=== PATIENT | male | born 1930 | race Caucasian/White ===

== ENCOUNTER 2017-10-08 18:31 | Inpatient (IN) | payer MEDICAID ==
--- NOTE | 2017-10-08 19:21 | ED Physician Chart ---
ED Chief Complaint/HPI - Patient Information Date Seen:: 10/08/17 Time Seen:: 19:00 Chief Complaint:: redness of his toes History of Present Illness:: Patient is a resident of a snf facility. He has had redness of his toes for an unspecified length of time. Patient is nonverbal secondary to dementia. Allergies:: Allergies Allergy/AdvReac Type Severity Reaction Status Date / Time No Known Drug Allergies Allergy Verified 03/22/16 21:00 Vitals:: Vital Signs - 8 hr 10/08/17 19:03 Temp 98.4 F HR 68 RR 18 BP 111/64 O2 Sat % 96 Review:: Transfer documents Reviewed ED Review of Systems - Review of Systems General/Constitutional: No fever, No chills, No weight loss, No weakness, No diaphoresis, No edema, No loss of appetite Skin: No skin lesions, No rash, No bruising, Other (redness of his toes) Head: No headache, No light-headedness Eyes: No loss of vision, No pain, No diplopia ENT: No earache, No nasal drainage, No sore throat, No tinnitus Neck: No neck pain, No swelling, No thyromegaly, No stiffness, No mass noted Cardio Vascular: No chest pain, No palpitations, No PND, No orthopnea, No edema Pulmonary: No SOB, No cough, No sputum, No wheezing GI: No nausea, No vomiting, No diarrhea, No pain, No melena, No hematochezia, No constipation, No hematemesis G/U: No dysuria, No frequency, No hematuria Musculoskeletal: No bone or joint pain, No back pain, No muscle pain Endocrine: No polyuria, No polydipsia Psychiatric: No prior psych history, No depression, No anxiety, No suicidal ideation Hematopoietic: No bruising, No lymphadenopathy Allergic/Immuno: No urticaria, No angioedema Neurological: No syncope, No focal symptoms, No weakness, No paresthesia, No headache, No seizure, No dizziness, No confusion, No vertigo ED Past Medical History - Past Medical History Past Medical History: HTN, DM, Asthma/COPD, Dementia, Other (Alzheimer's disease ; encephalopathy; Parkinson's disease; bipolar) Family History: Other (unavailable) Social History: Care Facility Surgical History: other (unavailable) Psychiatricy History: Bipolar, Dementia Medication: Reviewed Family Medical History - Family Member Mother History Unknown: Yes Ethnicity: Hx Family Hypertension: Yes Hx Family Dementia: Yes ED Physical Exam - Physical Examination General/Constitutional: Alert Other Gen/Cons comments:: Chronically ill-appearing; nonverbal Head: Atraumatic Eyes: Lids, conjuctiva normal Other Skin comments:: Mild erythema of toes both feet Other ENMT comments:: Appears to be edentulous but does not open his mouth Neck: No bruit Respiratory: Nl effort/Exclusion, Clear to Auscultation Cardio Vascular: RRR GI: No tenderness/rebounding/guarding, No organomegaly : No CVA tenderness Other Extremities comments:: See under skin Neuro/Psych: No focal deficits Misc: Normal back ED Labs/Radiology/EKG Results - Lab Results Results: Laboratory Results - last 24 hr 10/08/17 10/08/17 19:25 19:25 WBC 6.4 RBC 4.57 Hgb 14.7 Hct 44.5 MCV 97.3 MCH 32.2 H MCHC Differential 33.1 RDW 13.2 Plt Count 273 MPV 7.2 Neutrophils % 50.8 Lymphocytes % 37.0 Monocytes % 8.4 Eosinophils % 3.0 Basophils % 0.8 Sodium 137 Potassium 3.9 Chloride 108 H Carbon Dioxide 22.6 Anion Gap 10.3 BUN 18 Creatinine 0.7 Est GFR ( Amer) TNP Est GFR (Non-Af Amer) TNP BUN/Creatinine Ratio 25.7 Glucose 116 H Calcium 8.9 ED Septic Shock - . Is Septic Shock (SBP<90, OR Lactate>4 mmol\L) present?: No - <6hrs of presentation: Vital Signs: Vital Signs - 8 hr 10/08/17 19:03 Temp 98.4 F HR 68 RR 18 BP 111/64 O2 Sat % 96 ED Reassessment (Disposition) - Reassessment Reassessment Condition:: Unchanged - Diagnosis Diagnosis:: Cellulitis toes both feet; dementia; Parkinson's disease - Patient Disposition Admitted to:: Med/Surg Spoke to:: Zafar Lowery Admitting Medical Physician:: Zafar Lowery Condition at Disposition:: Stable, Unchanged
[2017-10-08 19:36] LABS: % BASOPHILS 0.8 % (0.0-2.0); % MONOCYTES 8.4 % (2.0-10.0); % NEUTROPHILS 50.8 % (40.0-80.0); BASOPHILE ABSOLUTE 0.1 Th/cumm (0-0.2); EOSINOPHILE ABSOLUTE 0.2 Th/cmm (0.1-0.4); HEMATOCRIT 44.5 % (41.0-60); HEMOGLOBIN 14.7 gm/dL (12-16); LYMPHOCYTE ABSOLUTE 2.4 Th/cmm (1.5-3.0); MEAN CELL VOLUME 97.3 fl (80-99); MEAN CORPUSCULAR HEMOGLOBIN 32.2 pg (27.0-31.0); MEAN CORPUSCULAR HGB CONC 33.1 pg (28.0-36.0); MEAN PLATELET VOLUME 7.2 fl; MONOCYTE ABSOLUTE 0.5 Th/cmm (0.3-1.0); NEUTROPHILE ABSOLUTE 3.2 Th/cmm (1.8-8.0); PLATELET COUNT 273 Th/cmm (150-400); RED BLOOD COUNT 4.57 Mil/cmm (3.80-5.80); RED CELL DISTRIBUTION WIDTH 13.2 % (11.5-20.0); WHITE BLOOD COUNT 6.4 Th/cmm (4.8-10.8)
[2017-10-08 19:49] LABS: ANION GAP 10.3 (7.0-16.0); BUN - UREA NITROGEN 18 mg/dL (7-25); CALCIUM SERUM 8.9 mg/dL (8.6-10.3); CARBON DIOXIDE 22.6 mEq/L (21.0-31.0); CHLORIDE 108 mEq/L (98-107); CREATININE - SERUM 0.7 mg/dL (0.7-1.3); GLUCOSE 116 mg/dL (70-105); POTASSIUM SERUM 3.9 mEq/L (3.5-5.1); SODIUM SERUM 137 mEq/L (136-145)
[2017-10-09] MEDS: cefTRIAXone 1 GM in Sodium Chloride 0.9% 50 ML IV SCH (01:00)
[2017-10-09] MEDS: INSULIN ASPART, RECOMBINANT 100 UNITS/ML SUBQ SCH (06:29)
[2017-10-09 06:38] LABS: % BASOPHILS 0.6 % (0.0-2.0); % EOSINOPHILS 2.8 % (0.0-5.0); % LYMPHOCYTES 34.9 % (20.0-50.0); % MONOCYTES 7.9 % (2.0-10.0); % NEUTROPHILS 53.8 % (40.0-80.0); EOSINOPHILE ABSOLUTE 0.2 Th/cmm (0.1-0.4); HEMATOCRIT 43.2 % (41.0-60); HEMOGLOBIN 14.6 gm/dL (12-16); LYMPHOCYTE ABSOLUTE 2.2 Th/cmm (1.5-3.0); MEAN CELL VOLUME 96.5 fl (80-99); MEAN CORPUSCULAR HEMOGLOBIN 32.7 pg (27.0-31.0); MEAN CORPUSCULAR HGB CONC 33.9 pg (28.0-36.0); MEAN PLATELET VOLUME 7.6 fl; MONOCYTE ABSOLUTE 0.5 Th/cmm (0.3-1.0); NEUTROPHILE ABSOLUTE 3.4 Th/cmm (1.8-8.0); PLATELET COUNT 278 Th/cmm (150-400); RED BLOOD COUNT 4.48 Mil/cmm (3.80-5.80); RED CELL DISTRIBUTION WIDTH 13.1 % (11.5-20.0); WHITE BLOOD COUNT 6.3 Th/cmm (4.8-10.8)
[2017-10-09 06:59] LABS: ALBUMIN 3.6 gm/dL (4.2-5.5); ALKALINE PHOSPHATASE 80 U/L (34-104); ANION GAP 8.2 (7.0-16.0); BILIRUBIN,TOTAL 0.6 mg/dL (0.3-1.0); BUN - UREA NITROGEN 15 mg/dL (7-25); CALCIUM SERUM 8.6 mg/dL (8.6-10.3); CARBON DIOXIDE 26.6 mEq/L (21.0-31.0); CHLORIDE 108 mEq/L (98-107); CREATININE - SERUM 0.7 mg/dL (0.7-1.3); GLUCOSE 87 mg/dL (70-105); POTASSIUM SERUM 3.8 mEq/L (3.5-5.1); SGOT 11 U/L (13-39); SGPT/ALT 9 U/L (7-52); SODIUM SERUM 139 mEq/L (136-145); TOTAL PROTEIN,SERUM 5.4 gm/dL (6.0-8.3)
[2017-10-09 07:28] LABS: CHOLESTEROL 183 mg/dL (<200); HDL -HIGH DENSITY LIPOPROTEIN 43 mg/dL (23-92); TRIGLYCERIDES 107 mg/dL (<150)
[2017-10-09 07:34] VITALS: BP 138/68
[2017-10-09] MEDS ORDERED: VTE Chemical Prophylaxis Screen/Admission MC PRN (07:45)
[2017-10-09] MEDS: Multivitamin w/ Minerals Tab PO SCH (08:41)
[2017-10-09] MEDS: Calcium Carb/Vit D 500 mg/200 U Tab PO SCH (08:41)
[2017-10-09] MEDS ORDERED: DOCUSATE SODIUM PO SCH (09:00)
[2017-10-09] MEDS ORDERED: INSULIN HUMAN REGULAR 100 UNITS/ML UNIT SUBQ SCH (09:00)
[2017-10-10] MEDS: cefTRIAXone 1 GM in Sodium Chloride 0.9% 50 ML IV SCH (01:58)
--- NOTE | 2017-10-10 02:49 | Consultation ---
DATE OF CONSULTATION: 10/09/2017 INFECTIOUS DISEASE CONSULTATION REFERRING PHYSICIAN: Gabby Lowery MD REASON FOR CONSULTATION: Cellulitis. HISTORY OF PRESENT ILLNESS: The patient is an 87-year-old male with a past medical history of hypertension, diabetes mellitus type 2, asthma, COPD, dementia, brought in from nursing facility for the redness of his stools for unknown period. On initial evaluation, the patient's temperature was 98.4 degrees Fahrenheit and WBC count was 6400. ALLERGIES: NKDA. MEDICATIONS: See medication reconciliation sheet. Antibiotic kulkarni, the patient is receiving Rocephin. REVIEW OF SYSTEMS: The patient is unable to give any history. The patient is demented. Otherwise, the patient has no fever, no chills. The patient has discoloration of some of the toes on both feet. It is associated with discoloration of the nails. SOCIAL HISTORY: The patient lives at nursing facility. No history of smoking, alcohol or drug use. FAMILY HISTORY: Not available. PHYSICAL EXAMINATION: VITAL SIGNS: Shows temperature 98.4, pulse 73, respirations 18, blood pressure 111/57. GENERAL: The patient is comfortable. HEENT: Head is normocephalic, atraumatic. Oral cavity moist, pink tongue. Eyes: Pallor is present, no icterus. PERRLA, EOMI. NECK: Supple. No JVD. No carotid bruit. Trachea midline. CHEST: Bilateral breath sounds. No crackles or wheezing. HEART: S1, S2 within normal limits. Regular rhythm. No murmur, no gallop. ABDOMEN: Soft, nontender, nondistended. Bowel sounds present. EXTREMITIES: No cyanosis, no clubbing, no edema. The patient has discoloration of the toes. The patient also has old ____. CENTRAL NERVOUS SYSTEM: Alert and awake. Unable to communicate. LABORATORY DATA: Current lab shows WBC count 6300, hemoglobin 14.6, hematocrit 43.2, platelets are 278,000, neutrophils 54%. Sodium 139, potassium 3.8, chloride 108, bicarbonate is 26.6, BUN is 15, creatinine 0.7, glucose is 87. IMPRESSION: Cellulitis of the toes of both feet with right elbow wound. There is discoloration of both lower extremities. LABORATORY DATA: Current lab shows WBC count is 6300, hemoglobin 14.6, hematocrit 43.2, platelets are 278,000, neutrophil is 0.7. IMPRESSION: 1. Cellulitis of the toes of both feet. May have fungal infection, onychomycosis. 2. Left elbow wound. 3. Diabetes mellitus type 2. 4. Dementia. RECOMMENDATIONS: Continue vancomycin, wound care. JOB# [id number]
[2017-10-10] MEDS: INSULIN ASPART, RECOMBINANT 100 UNITS/ML SUBQ SCH (06:33)
[2017-10-10] MEDS: Calcium Carb/Vit D 500 mg/200 U Tab PO SCH (10:05)
[2017-10-10] MEDS: Multivitamin w/ Minerals Tab PO SCH (10:05)
--- NOTE | 2017-10-27 15:21 | History & Physical ---
ADMIT DATE: 10/09/2017 HISTORY OF PRESENT ILLNESS: The patient is well known to me from and patient was admitted to [facility] on 10/08/2017 and the patient came in because of redness and swelling of his toes and difficult to obtain a history from him. REVIEW OF SYSTEMS: Briefly, the patient is confused and unable to give any history and he has cellulitis of his foot. The patient is known to have history of hypertension, diabetes, history of dementia. PHYSICAL EXAMINATION: GENERAL: The patient is alert, oriented x 1, to his name. HEAD: Normal. ENT: Normal. NECK: Supple, nontender. LUNGS: Clear. CARDIOVASCULAR SYSTEM: S1, S2 heard. ABDOMEN: Soft. Bowel sounds are heard EXTREMITIES: Cellulitis of both feet. DIAGNOSIS: Cellulitis of both feet, history of dementia, history of Parkinson disease, history of CVA in the past. PLAN: The patient is being admitted and I will follow the patient. I will have ID doctor see the patient. I will follow the patient. JOB# [id number]
--- NOTE | 2017-10-27 20:52 | History & Physical ---
ADMIT DATE: 10/10/2017 The patient is well known to me. The patient came from [facility], apparently had bilateral toe cellulitis and left elbow wound, history of diabetes, and dementia. The patient was treated, ID doctor saw the patient. The patient was put on antibiotic. The patient improved. The patient was in stable condition on 10/10/2017, was sent home was in stable condition. MEDICATIONS: See the reconciliation sheet. I will follow the patient. JOB# [id number]
== END 2017-10-10 14:22 | DRG 383 ==
LOC: ER 18:31 → MSI 21:05
PROVIDERS: ADMIT Internal Medicine; ATTEND Internal Medicine
DX: L03.031 Cellulitis of right toe (principal); G20 Parkinson's disease; E11.9 Type 2 diabetes mellitus without complications; G30.9 Alzheimer's disease, unspecified; B35.1 Tinea unguium; F02.80 Dementia in other diseases classified elsewhere, unspecified severity, without behavioral disturbance, psychotic disturbance, mood disturbance, and anxiety; F31.9 Bipolar disorder, unspecified; L03.032 Cellulitis of left toe; J44.9 Chronic obstructive pulmonary disease, unspecified; S50.902A Unspecified superficial injury of left elbow, initial encounter; X58.XXXA Exposure to other specified factors, initial encounter; I10 Essential (primary) hypertension; Z82.49 Family history of ischemic heart disease and other diseases of the circulatory system; Z81.8 Family history of other mental and behavioral disorders; Y93.89 Activity, other specified; Y92.89 Other specified places as the place of occurrence of the external cause; Y99.8 Other external cause status; Z86.73 Personal history of transient ischemic attack (TIA), and cerebral infarction without residual deficits
CPT/HCPCS: 36415-UA; 80048-TC; 80053-TC; 80061-TC; 82948-90; 84443-TC; 85025-TC; J0696; J1644; J1815; Z7610

== ENCOUNTER 2018-03-02 10:46 | Emergency (ER) | payer MEDICAID ==
[2018-03-02 11:30] LABS: % EOSINOPHILS 0.7 % (0.0-5.0); % LYMPHOCYTES 18.8 % (20.0-50.0); % NEUTROPHILS 71.5 % (40.0-80.0); BASOPHILE ABSOLUTE 0.4 Th/cumm (0-0.2); EOSINOPHILE ABSOLUTE 0.1 Th/cmm (0.1-0.4); HEMATOCRIT 46.9 % (41.0-60); HEMOGLOBIN 15.5 gm/dL (12-16); LYMPHOCYTE ABSOLUTE 1.9 Th/cmm (1.5-3.0); MEAN CORPUSCULAR HEMOGLOBIN 31.8 pg (27.0-31.0); MEAN CORPUSCULAR HGB CONC 33.1 pg (28.0-36.0); MEAN PLATELET VOLUME 7.3 fl; MONOCYTE ABSOLUTE 0.5 Th/cmm (0.3-1.0); NEUTROPHILE ABSOLUTE 7.1 Th/cmm (1.8-8.0); PLATELET COUNT 284 Th/cmm (150-400); RED BLOOD COUNT 4.89 Mil/cmm (3.80-5.80); RED CELL DISTRIBUTION WIDTH 13.1 % (11.5-20.0)
[2018-03-02 11:47] LABS: ALB/GLOB RATIO 1.7 (1.0-1.8); ALKALINE PHOSPHATASE 74 U/L (34-104); ANION GAP 12.7 (7.0-16.0); BILIRUBIN,TOTAL 0.5 mg/dL (0.3-1.0); BUN - UREA NITROGEN 23 mg/dL (7-25); CALCIUM SERUM 9.3 mg/dL (8.6-10.3); CARBON DIOXIDE 21.8 mEq/L (21.0-31.0); CHLORIDE 106 mEq/L (98-107); CREATININE - SERUM 0.8 mg/dL (0.7-1.3); GLUCOSE 103 mg/dL (70-105); MAGNESIUM 2.2 mg/dL (1.9-2.7); PHOSPHOROUS 2.4 mg/dL (2.5-5.0); POTASSIUM SERUM 3.5 mEq/L (3.5-5.1); SGOT 14 U/L (13-39); SGPT/ALT 8 U/L (7-52); SODIUM SERUM 137 mEq/L (136-145); TOTAL PROTEIN,SERUM 6.3 gm/dL (6.0-8.3)
[2018-03-02 12:35] LABS: URINE BILIRUBIN NEGATIVE (NEGATIVE); URINE BLOOD LARGE (NEGATIVE); URINE GLUCOSE (UA) NEGATIVE (NEGATIVE); URINE KETONE NEGATIVE (NEGATIVE); URINE LEUKOCYTE ESTERASE NEGATIVE (NEGATIVE); URINE MICROSCOPIC INDICATED? YES; URINE NITRATE NEGATIVE (NEGATIVE); URINE PROTEIN TRACE mg/dL (NEGATIVE); URINE SOURCE CATH
[2018-03-02] MEDS ORDERED: Piperacillin Sodium/Tazobact 3.375 gm Vial IV ONE (12:45)
[2018-03-02 12:46] LABS: URINE COLOR YELLOW
[2018-03-02 12:47] LABS: URINE CLARITY HAZY (CLEAR); URINE RBC 0-2 /hpf (0-5)
[2018-03-02 12:48] LABS: URINE EPITHELIAL CELLS OCCASIONAL /lpf (FEW)
[2018-03-02 12:49] LABS: URINE BACTERIA MODERATE /hpf (NONE SEEN)
--- NOTE | 2018-03-02 12:57 | ED Physician Chart ---
ED Chief Complaint/HPI - Patient Information Date Seen:: 03/02/18 Time Seen:: 11:20 Chief Complaint:: congestion History of Present Illness:: congestion Allergies:: Allergies Allergy/AdvReac Type Severity Reaction Status Date / Time No Known Drug Allergies Allergy Verified 03/02/18 11:20 Vitals:: Vital Signs - 8 hr 03/02/18 11:20 Temp 97.5 F HR 87 RR 18 BP 119/68 O2 Sat % 98 Historian:: Medical Records Review:: Nurse's Note Reviewed, Transfer documents Reviewed ED Review of Systems - Review of Systems General/Constitutional: No fever, No chills, No weight loss, No weakness, No diaphoresis, No edema, No loss of appetite Skin: No skin lesions, No rash, No bruising Head: No headache, No light-headedness Eyes: No loss of vision, No pain, No diplopia ENT: No earache, No nasal drainage, No sore throat, No tinnitus Neck: No neck pain, No swelling, No thyromegaly, No stiffness, No mass noted Cardio Vascular: No chest pain, No palpitations, No PND, No orthopnea, No edema Pulmonary: Other GI: No nausea, No vomiting, No diarrhea, No pain, No melena, No hematochezia, No constipation, No hematemesis G/U: No dysuria, No frequency, No hematuria Musculoskeletal: No bone or joint pain, No back pain, No muscle pain Endocrine: No polyuria, No polydipsia Psychiatric: No prior psych history, No depression, No anxiety, No suicidal ideation Hematopoietic: No bruising, No lymphadenopathy Allergic/Immuno: No urticaria, No angioedema Neurological: No syncope, No focal symptoms, No weakness, No paresthesia, No headache, No seizure, No dizziness, No confusion, No vertigo ED Past Medical History - Past Medical History Obtainable: No Past Medical History: HTN, DM, Asthma/COPD, Dementia, Other (Parkinson's) Psychiatricy History: Bipolar, Dementia Family Medical History - Family Member Mother History Unknown: Yes Ethnicity: Hx Family Hypertension: Yes Hx Family Dementia: Yes ED Physical Exam - Physical Examination General/Constitutional: Awake, Well-developed, well-nourished, Alert, No distress, Ambulatory Other Gen/Cons comments:: chronically ill appearing Head: Atraumatic Eyes: PERRL Skin: No rash ENMT: External ears, nose nl Neck: Nontender, No nuchal rigidity, No stridor Other Respiratory comments:: dry crackles at bases. Cardio Vascular: RRR, No murmur, gallop, rubs, NL S1 S2 GI: No tenderness/rebounding/guarding, No organomegaly, No hernia, Normal BS's, Nondistended, No mass/bruits, No McBurney tenderness Other Extremities comments:: RUE with wrist flexed. ED Labs/Radiology/EKG Results - Lab Results Results: Laboratory Tests 03/02/18 03/02/18 03/02/18 11:25 11:25 12:28 WBC 10.0 RBC 4.89 Hgb 15.5 Hct 46.9 MCV 96.0 MCH 31.8 H MCHC Differential 33.1 RDW 13.1 Plt Count 284 MPV 7.3 Neutrophils % 71.5 Lymphocytes % 18.8 L Monocytes % 5.0 Eosinophils % 0.7 Basophils % 4.0 H Sodium 137 Potassium 3.5 Chloride 106 Carbon Dioxide 21.8 Anion Gap 12.7 BUN 23 Creatinine 0.8 Est GFR ( Amer) TNP Est GFR (Non-Af Amer) TNP BUN/Creatinine Ratio 28.8 Glucose 103 Calcium 9.3 Phosphorus 2.4 L Magnesium 2.2 Total Bilirubin 0.5 AST 14 ALT 8 Alkaline Phosphatase 74 Total Protein 6.3 Albumin 4.0 L Globulin 2.3 Albumin/Globulin Ratio 1.7 Urine Source CATH Urine Color YELLOW Urine Clarity HAZY Urine pH 7.0 Ur Specific [place] 1.020 Urine Protein TRACE Urine Glucose (UA) NEGATIVE Urine Ketones NEGATIVE Urine Blood LARGE H Urine Nitrate NEGATIVE Urine Bilirubin NEGATIVE Urine Urobilinogen 1.0 Ur Leukocyte Esterase NEGATIVE Urine RBC 0-2 H Urine WBC 10-25 H Ur Epithelial Cells OCCASIONAL Urine Bacteria MODERATE H ED Assessment - Assessment General Assessment: CXR per my reading: enlarged heart with increased lung markings. patient refuses to eat. Dr. Zavala from [employer] called us after we received admitting orders from Dr. Lowery to admit here. Since the patient is clinically stable, Dr. Zavala asked for us to transfer the patient to [facility]. Dr. Lucretia Zavala is the accepting doctor for a direct admit per insurance request. ED Septic Shock - . Is Septic Shock (SBP<90, OR Lactate>4 mmol\L) present?: No - <6hrs of presentation: Vital Signs: Vital Signs - 8 hr 03/02/ 11:20 Temp 97.5 F HR 87 RR 18 BP 119/68 O2 Sat % 98 ED Reassessment (Disposition) - Reassessment Reassessment Condition:: Unchanged - Diagnosis Diagnosis:: Dehydration Weakness Failure to Thrive (refuses to eat) Suspected respiratory infection Urinary tract infection Diabetes mellitus COPD Parkinson's Alzheimer's Dementia Bipolar - Patient Disposition Discharge/Transfer:: Acute Care (other hosp) Transport Method:: ACLS Condition at Disposition:: Stable, Unchanged
[2018-03-02] MEDS ORDERED: Lactated Ringer 1,000 ML IV ONE (12:58)
--- NOTE | 2018-03-03 08:31 | Diagnostic Imaging Report ---
CHEST X-RAY: AP view INDICATION: Shortness of breath COMPARISON: 03/22/2016 FINDINGS: Chronic lung changes are noted. There is mild elevation of the right hemidiaphragm. Increased right basal lung markings are noted. There is no focal consolidation or pleural effusions . Borderline prominent heart is noted accentuated by patient's low lung volumes. Gas-filled bowel the upper abdomen are noted. Degenerative changes of the spine are noted with scoliosis. IMPRESSION: Chronic lung changes with increased right basal lung markings which may be due to atelectasis, however, focal infiltrate cannot be excluded. Please correlate clinically.
== END 2018-03-02 17:05 | disposition short-term general hospital (02) ==
LOC: ER 10:46
DX: E86.0 Dehydration (principal); J44.9 Chronic obstructive pulmonary disease, unspecified; N39.0 Urinary tract infection, site not specified; E11.9 Type 2 diabetes mellitus without complications; G20 Parkinson's disease; G30.9 Alzheimer's disease, unspecified; F02.80 Dementia in other diseases classified elsewhere, unspecified severity, without behavioral disturbance, psychotic disturbance, mood disturbance, and anxiety; F31.9 Bipolar disorder, unspecified; R62.7 Adult failure to thrive; I10 Essential (primary) hypertension
CPT/HCPCS: 99285; 96365; 96361; 71045; 83880; 36415; 85025; 87086; 81001; 83735; 84100; 80053; 87081; 87040 ×2; J2543; Z7610